=== PATIENT | female | born 1960 | race Caucasian/White ===

== ENCOUNTER → 2020-12-25 | Outpatient (CLI) | payer BC ==
[~2020-12-25] MED LIST: ALENDRONATE SOD70 MG PO; ASPIR-LOW81 MG PO; IBUPROFEN800 MG PO; IMDUR ER TAB 3030 MG PO; LEVOTHYROXINE75 MCG PO; NITROSTAT 0.40.4 MG SL; OMNICEF 300 MG300 MG PO; PROTONIX 40 MG40 M1 PO
== END ==
LOC: KOH-I 09:24
DX: M25.532 Pain in left wrist (principal); M19.032 Primary osteoarthritis, left wrist
CPT/HCPCS: 73100